=== PATIENT | female | born 1995 | race Caucasian/White ===

== ENCOUNTER 2017-07-16 17:26 | Emergency (ER) | payer MEDICAID, OTHER ==
--- NOTE | 2017-07-16 17:37 | EDPHY ---
H & P Time Seen by Provider: 07/16/17 17:36 HPI/ROS: Chief complaint. Seizure HPI. 21-year-old female with no his seizure history was standing with friends at work while they were smoking cigarettes and apparently fell to the ground and had generalized jerking activity. It lasted 1-2 minutes. She was confused afterwards. She sustained a nose bleed and laceration the back of her head. She takes lorazepam daily for anxiety. She tells me she has continued to take the lorazepam without interruption. Not sick. No chest pain or shortness of breath. No abdominal pain. Denies other drugs. ROS Constitutional. no fever/chills, no weakness Eyes. no problems with vision ENT. Nose bleed Cardiovascular. no chest pain Respiratory. no shortness of breath, no cough Abdominal. no abdominal pain, no nausea/vomiting, no diarrhea . no problems urinating MS. no calf pain/swelling, no neck/back pain, no joint pain Skin. Laceration back head Lymph. no swollen glands Neuro. Seizure Past Medical/Surgical History: Healthy; anxiety Social History: Single, nonsmoker, no alcohol Smoking Status: Never smoked Physical Exam: General Appearance: Alert well-developed female mild distress vital signs stable Eyes: Pupils equal and round no pallor or injection. ENT, clotted blood in the right nares. No septal hematoma. Did not bite tongue. No dental trauma Respiratory: There are no retractions, lungs are clear to auscultation. Cardiovascular: Regular rate and rhythm. Gastrointestinal: Abdomen is soft and nontender, no masses, bowel sounds normal. Neurological: Awake and alert, sensory and motor exams grossly normal. Skin: Warm and dry, no rashes. Musculoskeletal: Neck is supple nontender. Extremities symmetrical, full range of motion. Psychiatric: Patient is oriented X 3, there is no agitation. Constitutional: Initial Vital Signs Temperature (C) 36.5 C 07/16/17 17:55 Heart Rate 117 H 07/16/17 17:55 Respiratory Rate 18 07/16/17 17:55 Blood Pressure 116/72 07/16/17 17:55 O2 Sat (%) 99 07/16/17 17:55 O2 Delivery Mode Room Air Allergies/Adverse Reactions: No Known Allergies Allergy (Unverified 03/30/16 21:01) Home Medications: Medication Instructions Recorded clonazePAM [Klonopin (*)] 0.5 mg PO DAILY #7 tab 07/16/17 Medical Decision Making - Diagnostics EKG Interpretation: EKG interpreted by me shows normal sinus rhythm with normal interval and axis. QRS appears normal there is no significant ST elevation or depression. There is no arrhythmia. The rate is 80 Imaging Results: Imaging Impressions Head CT 07/16/17 17:39 Impression: 1. Left parieto-occipital scalp laceration. 2. No acute skull fracture. 3. Normal brain. No acute intracranial hemorrhage or mass. 4. Right maxillary, ethmoid, and sphenoid sinus disease. Findings discussed with Emergency Department physician, OMAIRA ROJAS at 07/16 18:40. Cervical Spine CT 07/16/17 17:40 Impression: 1. No acute fracture or soft tissue swelling. 2. If the patient has persistent pain or neurologic deficits, consider cervical spine MRI. Findings discussed with Emergency Department physician, OMAIRA ROJAS at 07/16 18:40. CT head reviewed by me and discussed with Dr. Barragan shows no skull fracture intracranial bleeding or tumor CT cervical spine reviewed by me and discussed with Dr. Barragan shows no fracture dislocation Procedures: IV normal saline, seizure precautions Procedure: Laceration repair. Verbal consent was obtained from the patient. The 3.5 cm laceration on the posterior scalp was anesthetized in the usual fashion. The wound was irrigated , draped and explored to its base with a gloved finger. There were no deep structures involved. No tendon injury was identified. The wound was repaired with seven 4-0 Prolene sutures. The wound repair was simple. The procedure was performed by myself. ED Course/Re-evaluation: Re-evaluation at 6:45 a.m.--patient is stable. Conversational and interactive. Appears Neurologically intact. The patient tells me that she had been taking clonazepam 0.5 mg daily for more than a month. About 1 week ago her prescription ran out and she never filled it. She has been not taking her clonazepam for about 1 week. Patient is given clonazepam 0.5 mg orally in the emergency department Patient given ibuprofen Re-evaluation at 7:50 p.m.. Patient is stable feeling much better. Patient and I discussed lab and imaging study results, treatment plan including criteria for return importance of follow-up and further evaluation. She is also cautioned about driving and other dangerous activities until evaluated by Neurology. Differential Diagnosis: I think that this is likely benzodiazepine withdrawal as a cause of her seizure. She had been chronically on clonazepam and stopped about 1 week ago. She had seizure today. No evidence for intracranial bleeding or tumor. Now neurologically intact. She has been restarted on clonazepam. She is stable. She is also warned about abrupt cessation of benzodiazepines and need for along slow taper. - Data Points Laboratory Results: Laboratory Results 07/16/17 17:30 07/16/17 17:30 07/16/17 07/16/17 07/16/17 17:30 17:30 17:30 WBC RBC Hgb Hct MCV MCH MCHC RDW Plt Count MPV Neut % (Auto) Lymph % (Auto) Allen % (Auto) Eos % (Auto) Baso % (Auto) Nucleat RBC Rel Count Absolute Neuts (auto) Absolute Lymphs (auto) Absolute Monos (auto) Absolute Eos (auto) Absolute Basos (auto) Absolute Nucleated RBC Immature Gran % Immature Gran # PT 15.4 SEC H SEC (12.0-15.0) INR 1.20 H (0.83-1.16) Sodium 148 mEq/L H mEq/L (135-145) Potassium 3.9 mEq/L mEq/L (3.5-5.2) Chloride 108 mEq/L mEq/L (97-110) Carbon Dioxide 10 mEq/l L mEq/l (22-31) Anion Gap 30 mEq/L H mEq/L (8-16) BUN 4 mg/dL L mg/dL (7-23) Creatinine 0.9 mg/dL mg/dL (0.6-1.0) Estimated GFR > 60 Glucose 133 mg/dL H mg/dL (70-100) Calcium 9.7 mg/dL mg/dL (8.5-10.4) Beta HCG, Qual NEGATIVE 07/16/17 17:30 WBC 14.90 10^3/uL H 10^3/uL (3.80-9.50) RBC 4.88 10^6/uL 10^6/uL (4.18-5.33) Hgb 16.0 g/dL g/dL (12.6-16.3) Hct 48.0 % H % (38.0-47.0) MCV 98.4 fL fL (81.5-99.8) MCH 32.8 pg pg (27.9-34.1) MCHC 33.3 g/dL g/dL (32.4-36.7) RDW 11.9 % % (11.5-15.2) Plt Count 445 10^3/uL H 10^3/uL (150-400) MPV 9.6 fL fL (8.7-11.7) Neut % (Auto) 51.1 % % (39.3-74.2) Lymph % (Auto) 37.8 % % (15.0-45.0) Allen % (Auto) 7.1 % % (4.5-13.0) Eos % (Auto) 2.6 % % (0.6-7.6) Baso % (Auto) 1.1 % % (0.3-1.7) Nucleat RBC Rel Count 0.0 % % (0.0-0.2) Absolute Neuts (auto) 7.61 10^3/uL H 10^3/uL (1.70-6.50) Absolute Lymphs (auto) 5.63 10^3/uL H 10^3/uL (1.00-3.00) Absolute Monos (auto) 1.06 10^3/uL H 10^3/uL (0.30-0.80) Absolute Eos (auto) 0.39 10^3/uL 10^3/uL (0.03-0.40) Absolute Basos (auto) 0.17 10^3/uL H 10^3/uL (0.02-0.10) Absolute Nucleated RBC 0.00 10^3/uL 10^3/uL (0-0.01) Immature Gran % 0.3 % % (0.0-1.1) Immature Gran # 0.04 10^3/uL 10^3/uL (0.00-0.10) PT INR Sodium Potassium Chloride Carbon Dioxide Anion Gap BUN Creatinine Estimated GFR Glucose Calcium Beta HCG, Qual Medications Given: Discontinued Medications Clonazepam (Klonopin) 0.5 mg PO EDNOW ONE Stop: 07/16/17 18:54 Last Admin: 07/16/17 18:59 Dose: 0.5 mg Sodium Chloride (Ns) 1,000 mls @ 0 mls/hr IV ONCE ONE; Wide Open PRN Reason: Protocol Stop: 07/16/17 17:39 Last Admin: 18 18:37 Dose: 1,000 mls Ondansetron HCl (Zofran) 4 mg IVP EDNOW ONE Stop: 07/16/17 17:39 Last Admin: 07/16/17 18:37 Dose: 4 mg Departure - Departure Disposition: Home, Routine, Self-Care Clinical Impression: Seizure Condition: Good Instructions: New-Onset Seizure in Adults (ED) Additional Instructions: Continue clonazepam 0.5 mg daily as you have been taking it. No driving or other dangerous activity until seen by neurologist. Call tomorrow to set up appointment. Tylenol or ibuprofen as needed for headache. You may wash your hair and shower with your stitches in. Return for signs of infection. Stitches out 1 week. Referrals: Patient,NotPresent [Unknown] - As per Instructions Josse Mireles DO [Doctor of Osteopathy] - 2-3 days, call for appt. Prescriptions: clonazePAM [Klonopin (*)] 0.5 mg PO DAILY #7 tab
[2017-07-16] MEDS ORDERED: NS 1,000 ML IV ONE (17:38)
[2017-07-16] MEDS ORDERED: ONDANSETRON 4 MG/2 ML VIAL IVP ONE (17:38)
[2017-07-16 17:47] LABS: PLATELET COUNT 445 10^3/uL (150-400)
[2017-07-16 17:57] LABS: INR 1.2 (0.83-1.16); PROTIME(PATIENT) 15.4 SEC (12.0-15.0)
--- NOTE | 2017-07-16 18:13 | CPEKG ---
Heart Rate: 80 RR Interval: 750 P-R Interval: 132 QRSD Interval: 96 QT Interval: 412 QTC Interval: 476 P Premont: 66 QRS Premont: 67 T Wave Premont: 52 EKG Severity - BORDERLINE ECG - EKG Impression: SINUS RHYTHM EKG Impression: BORDERLINE PROLONGED QT INTERVAL Electronically Signed By: David Peck 16-Jul-2017 21:06:41
[2017-07-16] MEDS ORDERED: clonazePAM 0.5 MG TAB PO ONE (18:53)
[2017-07-16] MEDS ORDERED: IBUPROFEN 600 MG TAB PO ONE (19:52)
[2017-07-16] MEDS ORDERED: LORAZEPAM 1 MG PREPACK#4 BTL TAKEHOME ONE (20:42)
[2017-07-16 20:57] VITALS: BP 101/84
== END 2017-07-23 11:06 | disposition home or self-care (01) ==
LOC: EDUNIT#
PROC: 0HQ0XZZ Repair Scalp Skin, External Approach (ICD-10-PCS; principal; 2017-07-16)
DX: S01.01XA Laceration without foreign body of scalp, initial encounter (principal); R56.9 Unspecified convulsions; E86.9 Volume depletion, unspecified; W19.XXXA Unspecified fall, initial encounter
CPT/HCPCS: 80305; 96374; J2405